=== PATIENT | male | born 1950 | race Caucasian/White ===

== ENCOUNTER 2016-12-31 09:54 | Emergency (ER) | payer OTHER ==
[~2016-12-31] VITALS: Ht 190.5 cm; Wt 109.9 kg
[~2016-12-31 09:54] MED LIST: BABY ASPIRIN81 M1 PO; LIPITOR10 MG PO
[2016-12-31 11:55] VITALS: BP 142/101
== END 2016-12-31 12:12 | disposition home or self-care (01) ==
LOC: EME 09:54
PROC: 0HQ0XZZ Repair Scalp Skin, External Approach (ICD-10-PCS; principal; 2016-12-31)
DX: S01.01XA Laceration without foreign body of scalp, initial encounter (principal); G20 Parkinson's disease; W01.198A Fall on same level from slipping, tripping and stumbling with subsequent striking against other object, initial encounter; Y93.01 Activity, walking, marching and hiking; Y92.009 Unspecified place in unspecified non-institutional (private) residence as the place of occurrence of the external cause; E78.5 Hyperlipidemia, unspecified; Z96.642 Presence of left artificial hip joint; Z87.891 Personal history of nicotine dependence
CPT/HCPCS: 70450; 99281; 99283

== ENCOUNTER 2017-01-09 17:37 | Emergency (ER) | payer OTHER ==
[~2017-01-09] VITALS: Ht 188 cm; Wt 110.4 kg
[~2017-01-09 17:37] MED LIST changes: +COLACE100 MG PO; +SINEMET 25-1001 EACH PO; +VITAMIN D2000 UNIT PO
[2017-01-09 22:20] VITALS: BP 165/100
== END 2017-01-09 22:21 | disposition home or self-care (01) ==
LOC: EME 17:37
DX: S50.311A Abrasion of right elbow, initial encounter (principal); S00.81XA Abrasion of other part of head, initial encounter; M25.569 Pain in unspecified knee; W19.XXXA Unspecified fall, initial encounter; Z91.81 History of falling; R29.6 Repeated falls; G20 Parkinson's disease; E78.5 Hyperlipidemia, unspecified; Z86.711 Personal history of pulmonary embolism; Z96.642 Presence of left artificial hip joint; Z96.651 Presence of right artificial knee joint; Z87.891 Personal history of nicotine dependence
CPT/HCPCS: 99281; 99284